=== PATIENT | male | born 1990 | race Two or more races ===

== ENCOUNTER 2019-06-12 14:10 | Emergency (ER) | payer SELFPAY ==
[~2019-06-12] VITALS: Ht 177.8 cm; Wt 81.6 kg
[2019-06-12] MEDS ORDERED: TDAP DIPH,PERTUSS,TET VAC/PF 0.5 ML DISP.SYRIN IM ONE ×2 (14:30→14:42)
--- NOTE | 2019-06-12 14:50 | NUR ---
[facility] LAC REPAIR DONE ASEPTIC TECHNIQUE PT ABLE TO TOLERATE PROCEDURE
--- NOTE | 2019-06-12 15:04 | NUR ---
Patient discharged to home in stable conditon. Written and verbal after care instructions given. Patient verbalizes understanding of instructions. AMBULATORY W. STABLE GAIT ALL BELONGINGS W/ PT
[2019-06-12 15:07] VITALS: BP 142/63
== END 2019-06-12 15:08 | disposition home or self-care (01) ==
LOC: ER 14:10
PROC: 0HQLXZZ Repair Left Lower Leg Skin, External Approach (ICD-10-PCS; principal; 2019-06-12)
DX: S81.812A Laceration without foreign body, left lower leg, initial encounter (principal); W27.8XXA Contact with other nonpowered hand tool, initial encounter; Y92.89 Other specified places as the place of occurrence of the external cause; F17.200 Nicotine dependence, unspecified, uncomplicated
CPT/HCPCS: 99283; 12001; 90471; 90715; J3490; A4217; A4663

== ENCOUNTER 2019-06-12 17:35 | Emergency (ER) | payer SELFPAY ==
[~2019-06-12] VITALS: Ht 177.8 cm; Wt 81.6 kg
--- NOTE | 2019-06-12 17:50 | NUR ---
PT IS IN ROOM #2A. DR SNYDER EVALUATED THE PT.
[2019-06-12] MEDS ORDERED: NEOMY/BACITRA/POLYMYXIN B OINT UD PACKET TP ONE ×2 (19:01→19:15)
--- NOTE | 2019-06-12 19:10 | NUR ---
Patient discharged to home in stable conditon. Written and verbal after care instructions given. Patient verbalizes understanding of instructions. Patient wheeled out of dept and was instructed to keep weight off of left leg.
[2019-06-12 19:11] VITALS: BP 120/65
--- NOTE | 2019-06-12 19:15 | NUR ---
Applied Triple ATB per ERMD order.
== END 2019-06-12 19:11 | disposition home or self-care (01) ==
LOC: ER 17:37
DX: I97.620 Postprocedural hemorrhage of a circulatory system organ or structure following other procedure (principal); S91.012A Laceration without foreign body, left ankle, initial encounter; W27.8XXA Contact with other nonpowered hand tool, initial encounter; Y92.89 Other specified places as the place of occurrence of the external cause
CPT/HCPCS: 35226; 99284; J2001; A4663